=== PATIENT | male | born 1945 | race Native Hawaiian/Other Pacific Islander ===

== ENCOUNTER 2017-04-23 07:25 | Day surgery (SDC) | payer OTHER ==
[2017-04-23 08:09] VITALS: BMI 22.4
[2017-04-23] MEDS ORDERED: Lactated Ringer's 1,000 ML IV ONE (09:25)
--- NOTE | 2017-04-23 09:25 | CP.SDSHP ---
Same Day Surgery H & P - History Proposed Procedure: COLONSCOPY Pre-Op Diagnosis: SEE NOTES - Previous Medical/Surgical History Endocrine/Metabolic: Other Misc: Other Pain: 4.Moderate Pain Previous Surgical History: COLON POLYPS - Allergies Allergies: Allergies No Known Allergies Allergy (Verified 04/23/17 08:09) - Physical Exam General Appearance: N Vital Signs: Vital Signs 04/23/17 07:58 Temperature 97.8 F Pulse Rate 65 Respiratory 19 Rate Blood Pressure 127/76 O2 Sat by Pulse 97 Oximetry Mental Status: Alert & Oriented x3 Neuro: WNL Heart: WNL Lungs: WNL GI: Other - {Optional Preform as Required} Breast: WNL Abdomen: Other Rectal: Other Integument: WNL : WNL Ortho: WNL ENT: WNL - Impression Pt. Evaluated Today:Candidate for Anesthesia & Procedure: Yes - Date & Time Time: 09:25 Short Stay Discharge - Short Stay Discharge Admitting Diagnosis/Reason for Visit: COLON POLYP Disposition: HOME/ ROUTINE
[2017-04-23] MEDS ORDERED: Propofol 10 mg/ml Inj (20 ML) ONE (09:26)
[2017-04-23] MEDS ORDERED: Belladonna-Phenobarbital PO ONE (10:05)
[2017-04-23 10:12] VITALS: TEMP 98
[2017-04-23 10:39] VITALS: BP 128/77; PULSE 60; RESP 17; O2SAT 97
== END 2017-04-23 10:55 | disposition home or self-care (01) ==
LOC: C.ENDO 07:25
PROVIDERS: ATTEND Specialist
DX: K52.9 Noninfective gastroenteritis and colitis, unspecified (principal); Z86.010 Personal history of colon polyps; R10.84 Generalized abdominal pain; K64.8 Other hemorrhoids; K57.30 Diverticulosis of large intestine without perforation or abscess without bleeding

== ENCOUNTER 2018-02-16 07:05 | Day surgery (SDC) | payer OTHER ==
[2018-02-16 07:59] VITALS: BMI 23.3
[2018-02-16] MEDS ORDERED: Propofol 10 mg/ml Inj (20 ML) ONE (08:53)
[2018-02-16] MEDS ORDERED: Pantoprazole 40 mg EC Tab PO STA (08:55)
--- NOTE | 2018-02-16 08:55 | CP.SDSHP ---
Same Day Surgery H & P - History Proposed Procedure: EGD Pre-Op Diagnosis: SEE NOTES - Previous Medical/Surgical History Endocrine/Metabolic: Diabetes Neuro: Backaches Misc: Other Pain: 4.Moderate Pain - Allergies Allergies: Allergies No Known Allergies Allergy (Verified 04/23/17 08:09) - Physical Exam General Appearance: N Vital Signs: Vital Signs 02/16/18 08:05 Temperature 98.6 F Pulse Rate 65 Respiratory 16 Rate Blood Pressure 134/73 O2 Sat by Pulse 96 Oximetry Neuro: WNL Heart: Other Lungs: WNL GI: WNL - {Optional Preform as Required} Breast: WNL Abdomen: Other Rectal: Other Integument: WNL : WNL Ortho: Other ENT: WNL - Impression Pt. Evaluated Today:Candidate for Anesthesia & Procedure: Yes - Date & Time Time: 08:55 Short Stay Discharge - Short Stay Discharge Admitting Diagnosis/Reason for Visit: DYSPEPSIA Disposition: HOME/ ROUTINE
[2018-02-16] MEDS ORDERED: Belladonna-Phenobarbital PO STA (08:56)
[2018-02-16 09:17] VITALS: TEMP 98.9
[2018-02-16 09:57] VITALS: O2SAT 100
[2018-02-16 09:59] VITALS: BP 140/82; PULSE 57; RESP 15
== END 2018-02-16 10:13 | disposition home or self-care (01) ==
LOC: C.ENDO 07:05
PROVIDERS: ATTEND Specialist
DX: K25.9 Gastric ulcer, unspecified as acute or chronic, without hemorrhage or perforation (principal); B96.81 Helicobacter pylori [H. pylori] as the cause of diseases classified elsewhere; K30 Functional dyspepsia; E11.9 Type 2 diabetes mellitus without complications
CPT/HCPCS: 43239; 82948; 88305; 88342; J2001; J2704